=== PATIENT | male | born 1980 | race Caucasian/White ===

== ENCOUNTER 2016-08-07 17:05 | Emergency (ER) | payer SELFPAY ==
--- NOTE | 2016-08-07 17:27 | ERNOTE ---
Medical Problem HPI - Narrative Date of Service: 08/07/16 - General Chief Complaint: Fever Time Seen by Provider: 08/07/16 17:16 Source: patient, family, RN notes reviewed Exam Limitations: no limitations - Immun/Allergies/Home Medications Immunizations: IMMUNIZATION HX Immunizations Up to Date Yes History of Influenza Vaccine No Allergies/Adverse Reactions: Allergies No Known Allergies Allergy (Verified 08/07/16 17:12) Home Medications: HOME MEDICATIONS Alprazolam [Xanax Xr] 0.5 mg PO Q6H PRN 05/04/16 [Last Taken Unknown] Promethazine HCl [Phenergan] 25 mg PO QID PRN #20 tablet 05/09/16 [Last Taken Unknown] Azithromycin [Zithromax] 250 mg PO DAILY #4 tablet 08/07/16 [Last Taken Unknown] - History of Present History Narrative: 36 y/o male to ED by private vehicle for fever, cough, and sore throat that began 3 days ago. He denies any sick contacts. He has been taking Tylenol and ibuprofen for his fever. He also reports diarrhea but no vomiting. Date (Duration): 08/04/16 Review of Systems - Review of Systems Constitutional: Present: fever, chills, fatigue, malaise EYE: Present: no symptoms reported ENT: Present: nose congestion, sore throat. Absent: ear pain Respiratory: Present: shortness of breath, cough, wheezing Cardiology: Absent: chest pain, syncope Gastrointestinal/Abdominal: Present: diarrhea. Absent: nausea, vomiting, abdominal pain Genitourinary: Present: no symptoms reported Musculoskeletal: Present: muscle pain, joint pain Skin: Absent: rash, lesions Neurological: Present: headache, dizziness/light-headedness Endocrine: Present: no symptoms reported Hematologic/Lymphatic: Present: no symptoms reported Psych: Present: no symptoms reported - Patient's Past Medical History Patient History - Medical: Anxiety, Depression Patient History - Cardiac/Respiratory: Asthma Patient History - Cancer: No Hx of Cancer Patient History - Surgical Procedures: No surgical history - Family History Mother Family History - Medical: No pertinent hx Father Family History - Medical: No pertinent hx - Social History Living Situations: home Does anyone smoke in the home?: Yes Smoking Status: Current every day smoker Cigarettes Packs Per Day: 0.5 Alcohol Use: occasionally Drug Use: none - Immunizations Immunizations Up to Date: Yes Hx Pneumococcal Vaccination: No History of Influenza Vaccine: No Physical Exam - Physical Exam General Appearance: Present: wd/wn, alert, mild distress Ears, Nose, Throat: Present: nasal congestion, pharyngeal erythema. Absent: abnormal TM (R), abnormal TM (L) Neck: Present: normal inspection, nontender, supple Respiratory: Present: no respiratory distress, accessory muscle use - mild tachypnea, wheezing - mild Cardiovascular/Chest: Present: no murmur, tachycardia Extremity Exam: Present: normal inspection, no edema Neurological Exam: Present: alert, oriented, normal mood/affect, no motor/ sensory deficits Skin Exam: Present: normal color, diaphoresis ED Progress - Results and Orders Patient's Lab Results:: I have reviewed the patient's lab results. - Vital Signs Patient's Vital Signs:: I have reviewed the patient's vital signs. Vital Signs: Vital Signs 08/07/16 17:08 Temperature 38.5 C H Pulse Rate 113 H Respiratory 12 Rate Blood Pressure 125/86 O2 Sat by Pulse 97 Oximetry - X-Ray X-Ray #1 X-Ray: chest Interpretation: Reviewed by me X-ray Comments: Technique: PA and lateral views of the chest utilizing 3 total images are evaluated without comparison. Findings: Best appreciated on the lateral view is focal airspace consolidation in the right upper lobe which borders the minor and major fissures. No left-sided consolidation. No pleural effusion or pneumothorax. Cardiac silhouette and pulmonary vasculature are normal. The osseous structures are normal. IMPRESSION: RIGHT UPPER LOBE PNEUMONIA. Electronically signed by Nael Kee D.O.. - Progress/Reassessment Chief Complaint: Fever Progress:: Improved Plan - Plan Plan: Duoneb, IV NS bolus, Tylenol, SoluMedrol, KDur and Zithromax given in dept. Able to tolerate oral meds and fluids. Departure - Departure Clinical Impression: Hypokalemia Pneumonia Qualifiers: Pneumonia type: due to unspecified organism Laterality: right Lung location: upper lobe of lung Qualified Code(s): J18.1 - Lobar pneumonia, unspecified organism Disposition: Home self-care Condition: Stable Instructions: Hypokalemia, Community-Acquired Pneumonia, Adult, [id number] Additional Instructions: Drink plenty of fluids Tylenol and/or ibuprofen for pain/fever Rest Follow up as needed Referrals: Ramesh Collier MD [Primary Care Provider] - Prescriptions: Azithromycin [Zithromax] 250 mg PO DAILY #4 tablet
[2016-08-07] MEDS ORDERED: ALBUTEROL SULFATE/IPRATROPIUM 3 ML NEBU IH ONE ×2 (17:33→17:39)
[2016-08-07] MEDS ORDERED: ACETAMINOPHEN 500 MG TABLET PO ONE (17:33)
--- OUTSIDE RECORDS SUMMARY | 2016-08-07 17:44 | XMS REPORT | Continuity of Care Document ---
:1980 Author Organization [facility] ([facility]) Address [address] [place] [address] Phone [phone] Care Team Providers Name Role Phone Provider, No-Primary Care Primary Care Provider Unavailable Source Comments This disclosure is being made pursuant to the Care Everywhere program, applicable federal and state laws, and may not contain all informaitonavailable regarding this patient.[facility] ([facility]) Active Allergies and Adverse Reactions No Known Allergies Current Medications Not on file Active Problems Not on file Immunizations Name Dates Previously Given Next Due Tdap 11/10/2011 Social History Tobacco Use Types Packs/Day Years Used Date Never Assessed Plan of Care Health Maintenance Due Date Last Done Comments Hepatitis B Vaccine (1 of 3 - Primary Series) 1980 Lipid Disorder Screening 01/12/2000 MMR Vaccine 01/12/2000 Varicella Vaccine (1 of 2 - Adult - No Evidence of 01/12/2000 Immunity) Influenza Vaccine: Seasonal (#1) 01/04/2016 Td Vaccine 11/09/2021 11/10/2011 Tdap Vaccine Completed 11/10/2011 Results from Last 3 Months Not on file
--- OUTSIDE RECORDS SUMMARY | 2016-08-07 17:45 | XMS REPORT | Summary of Care ---
:[address] [facility] Address [address] [place] [address]- Care Team Providers Name Role Phone Sade Cam Primary Care Physician Encounter Date(s): 10/30/15 - 10/30/[address] [id number] Final: Radiculopathy, cervical region Final: Radiculopathy, lumbar region Discharge Disposition: 01 Discharged to Home or Self Care Attending Physician: SABINE Gordon Admitting Physician: SABINE Gordon Vital Signs No data available for this section Problem List Condition Effective Dates Status Health Status Informant Asthma(Confirmed) Active Allergies, Adverse Reactions, Alerts No Known Allergies Medications albuterol 90 mcg/inh inhalation powder 2 puff(s), Inhale, QID, PRN shortness of breath or wheezing, # 1 inh, 1 Refill(s ), Start Date: 12/15/14 10:35:00 CDT, [facility] [place] Start Date: 12/15/14 Stop Date: 06/04/15 Status: Completedalbuterol 90 mcg/inh inhalation powder puff(s), Inhale, q4hr interval, 0 Refill(s), Start Date: 12/15/14 10:35:00 CDT Start Date: 12/15/14 Stop Date: 12/15/14 Status: Discontinuedalbuterol 90 mcg/inh inhalation powder 2 puff(s), Inhale, QID, PRN shortness of breath or wheezing, # 1 EA, 1 Refill(s) , Start Date: 06/04/15 9:19:36 [employer], [place] Start Date: 06/04/15 Stop Date: 06/17/15 Status: Discontinuedalbuterol 90 mcg/inh inhalation powder 2 puff(s), Inhale, QID, PRN shortness of breath or wheezing, # 1 EA, 6 Refill(s) , Start Date: 06/17/15 9:03:00 [employer], Pharmacy: [facility] [place] [place] Start Date: 06/17/15 Stop Date: 01/13/16 Status: Orderedalbuterol CFC free 90 mcg/inh inhalation aerosol 2 puff(s), Inhale, QID, PRN for wheezing, # 18 gm, 0 Refill(s), Start Date: 03/19 10:55:00 CDT, Pharmacy: [facility] [place] [place] Start Date: 08/12/14 Stop Date: 08/19/14 Status: CompletedAzithromycin 5 Day Dose Pack 250 mg oral tablet 1 packet(s), Oral, Per Package Label, as directed on package labeling, X 5 days , # 6 tab(s), 0 Refill(s), Start Date: 08/12/14 10:54:00 CDT, Pharmacy: [facility] [place], [place] Special Instructions: as directed on package labeling Start Date: 08/12/14 Stop Date: 08/17/14 Status: CompletedFlexeril 5 mg oral tablet 1 tab(s), Oral, TID, # 60 tab(s), 6 Refill(s), Start Date: 11/18/15 9:00:27 CDT , Pharmacy: [facility] [place] [place] Start Date: 11/18/15 Status: OrderedFlexeril 5 mg oral tablet 1 tab(s), Oral, TID, # 60 tab(s), 6 Refill(s), Start Date: 11/18/15 8:58:24 CDT , Pharmacy: [facility] Start Date: 11/18/15 Stop Date: 11/18/15 Status: CompletedFlexeril 5 mg oral tablet 1 tab(s), Oral, TID, # 60 tab(s), 0 Refill(s), Start Date: 08/10/15 15:34:00 [employer] Start Date: 08/10/15 Stop Date: 11/18/15 Status: Discontinuedgabapentin 300 mg oral capsule 1 cap(s), Oral, TID, # 90 cap(s), 0 Refill(s), Start Date: 11/26/15 9:23:00 CDT Start Date: 11/26/15 Stop Date: 11/26/15 Status: Completedgabapentin 300 mg oral capsule 1 cap(s), Oral, TID, # 90 cap(s), 0 Refill(s), Start Date: 11/26/15 9:27:06 CDT , [place] [facility] [place] Start Date: 11/26/15 Status: OrderedHYDROcodone-acetaminophen 5 mg-325 mg oral tablet 1-2 tab(s), Oral, TID, PRN for pain, X 30 days, # 180 tab(s), 0 Refill(s), Start Date: 08/27/15 17:06:52 CDT Start Date: 08/27/15 Stop Date: 10/15/15 Status: CompletedHYDROcodone-acetaminophen 5 mg-325 mg oral tablet 1-2 tab(s), Oral, TID, PRN for pain, # 30 tab(s), 0 Refill(s), Start Date: 11/15 15:59:54 CDT Start Date: 11/16/15 Stop Date: 11/18/15 Status: DiscontinuedHYDROcodone-acetaminophen 5 mg-325 mg oral tablet 1-2 tab(s), Oral, TID, PRN for pain, # 180 tab(s), 0 Refill(s), Start Date: 8:58:27 CDT Start Date: 11/18/15 Stop Date: 11/28/15 Status: OrderedHYDROcodone-acetaminophen 5 mg-325 mg oral tablet 1 tab(s), Oral, q6hr, PRN for pain, # 60 tab(s), 0 Refill(s), Start Date: 15:33:00 [employer] Start Date: 08/10/15 Stop Date: 08/27/15 Status: CompletedHYDROcodone-acetaminophen 5 mg-325 mg oral tablet 1-2 tab(s), Oral, TID, PRN for pain, # 180 tab(s), 0 Refill(s), Start Date: 9:57:57 CDT Start Date: 11/16/15 Stop Date: 11/16/15 Status: DiscontinuedHYDROcodone-acetaminophen 5 mg-325 mg oral tablet 1-2 tab(s), Oral, TID, PRN for pain, X 30 days, # 180 tab(s), 0 Refill(s), Start Date: 10/15/15 16:16:11 CDT Start Date: 10/15/15 Stop Date: 11/16/15 Status: Completedlidocaine 5% topical film 1 patch(es), Topical, Daily, # 30 patch(es), 11 Refill(s), Start Date: 11/18/15 9:00:47 CDT, Pharmacy: [facility] [place] [place] Start Date: 11/18/15 Status: Orderedlidocaine 5% topical film 1 patch(es), Topical, Daily, # 30 patch(es), 11 Refill(s), Start Date: 11/18/15 8:58:00 CDT, Pharmacy: [facility] Start Date: 11/18/15 Stop Date: 11/18/15 Status: Completedmeloxicam 15 mg oral tablet 1 tab(s), Oral, Daily, PRN back pain, # 30 tab(s), 11 Refill(s), Start Date: 9:00:41 CDT, Pharmacy: [facility] [place] [place] Start Date: 11/18/15 Stop Date: 11/12/16 Status: Orderedmeloxicam 15 mg oral tablet 1 tab(s), Oral, Daily, PRN back pain, # 30 tab(s), 6 Refill(s), Start Date: 06/20 15:22:26 CDT, Pharmacy: [facility] [place] [place] Start Date: 09/04/15 Stop Date: 11/18/15 Status: Discontinuedmeloxicam 15 mg oral tablet 1 tab(s), Oral, Daily, X 14 days, # 14 tab(s), 0 Refill(s), Start Date: 15:21:57 CDT, Pharmacy: [place], [place] Start Date: 09/04/15 Stop Date: 09/04/15 Status: Completedmeloxicam 15 mg oral tablet 1 tab(s), Oral, Daily, PRN back pain, X 30 days, # 30 tab(s), 11 Refill(s), Start Date: 11/18/15 8:58:29 CDT, Pharmacy: [facility] Start Date: 11/18/15 Stop Date: 11/18/15 Status: Completedmeloxicam 15 mg oral tablet 1 tab(s), Oral, Daily, # 14 tab(s), 0 Refill(s), Start Date: 08/12/15 11:18:00 [employer], Pharmacy: [facility] Start Date: 08/12/15 Stop Date: 09/04/15 Status: Discontinuedpantoprazole 20 mg oral delayed release tablet 1 tab(s), Oral, Daily, # 30 tab(s), 0 Refill(s), Start Date: 06/17/15 9:10:00 [employer], Pharmacy: [facility] Start Date: 06/17/15 Status: OrderedpredniSONE 10 mg oral tablet See Instructions, 4 tabs daily x 2 days; 3 tabs dly x 2 days, 2 tabs dly x 2 days; 1 tab dly x2 days; one-half tab daily x 2 days then stop, # 20 tab(s), 0 Refill(s), Start Date: 08/12/14 10:55:00 CDT, Pharmacy: [place], [place] Special Instructions: 4 tabs daily x 2 days; 3 tabs dly x 2 days, 2 tabs dly x 2 days; 1 tab dly x2 days; one-half tab daily x 2 days then stop Start Date: 08/12/14 Stop Date: 08/21/14 Status: CompletedpredniSONE 10 mg oral tablet 1 tab(s), Oral, Daily, take 4 tablets today; then 2 tablets daily for 7 days, # 20 tab(s), 0 Refill(s), Start Date: 08/12/15 11:16:00 [employer], Pharmacy: [facility] Special Instructions: take 4 tablets today; then 2 tablets daily for 7 days Start Date: 08/12/15 Stop Date: 09/04/15 Status: CompletedPROzac 20 mg oral capsule 1 cap(s), Oral, Daily, # 30 cap(s), 0 Refill(s), Start Date: 08/12/14 10:37:00 CDT Start Date: 08/12/14 Stop Date: 08/26/14 Status: DiscontinuedPROzac 20 mg oral capsule 1 cap(s), Oral, Daily, # 30 cap(s), 1 Refill(s), Start Date: 08/26/14 9:26:00 CDT, Pharmacy: [facility] [place] [place] Start Date: 08/26/14 Stop Date: 12/15/14 Status: CompletedPROzac 20 mg oral capsule 1 cap(s), Oral, Daily, # 30 cap(s), 2 Refill(s), Start Date: 03/16/15 14:18:51 CDT, Pharmacy: [facility] [place] [place] Start Date: 03/16/15 Stop Date: 06/04/15 Status: CompletedPROzac 20 mg oral capsule 1 cap(s), Oral, Daily, # 30 cap(s), 1 Refill(s), Start Date: 12/15/14 10:37:48 CDT, Pharmacy: [facility] [place] [place] Start Date: 12/15/14 Stop Date: 03/16/15 Status: CompletedPROzac 20 mg oral capsule 1 cap(s), Oral, Daily, # 30 cap(s), 2 Refill(s), Start Date: 06/04/15 9:25:45 [employer], Pharmacy: [facility] [place] [place] Start Date: 06/04/15 Stop Date: 06/17/15 Status: DiscontinuedSingulair 10 mg oral tablet 1 tab(s), Oral, qPM, # 90 tab(s), 1 Refill(s), Start Date: 06/17/15 9:03:00 [employer] , Pharmacy: [facility] [place] [place] Start Date: 06/17/15 Status: OrderedSingulair 10 mg oral tablet 1 tab(s), Oral, qPM, # 30 tab(s), 0 Refill(s), Start Date: 04/16/15 8:52:00 [employer] Start Date: 04/16/15 Stop Date: 06/17/15 Status: Discontinuedvenlafaxine 150 mg oral tablet, extended release 1 tab(s), Oral, Daily, NOTE NEW DOSE, X 30 days, # 30 tab(s), 0 Refill(s), Start Date: 09/30/15 17:27:00 CDT, Pharmacy: [place], [place] Special Instructions: NOTE NEW DOSE Start Date: 09/30/15 Stop Date: 10/27/15 Status: Completedvenlafaxine 150 mg oral tablet, extended release 1 tab(s), Oral, Daily, X 30 days, # 30 tab(s), 1 Refill(s), Start Date: 16:55:24 CDT, Pharmacy: [place] Start Date: 10/27/15 Stop Date: 11/05/15 Status: Completedvenlafaxine 150 mg oral tablet, extended release 1 tab(s), Oral, Daily, # 30 tab(s), 0 Refill(s), Start Date: 11/05/15 11:46:16 CDT, Pharmacy: [facility] Start Date: 11/05/15 Status: Orderedvenlafaxine 75 mg oral tablet, extended release 1 tab(s), Oral, Daily, # 30 tab(s), 6 Refill(s), Start Date: 06/17/15 9:06:00 [employer], Pharmacy: [place] Start Date: 06/17/15 Stop Date: 09/30/15 Status: DiscontinuedXanax 0.5 mg oral tablet 1 tab(s), Oral, TID, PRN for anxiety, # 30 tab(s), 0 Refill(s), Start Date: 05/20 16:15:46 CDT Start Date: 10/15/15 Status: OrderedXanax 0.5 mg oral tablet 1 tab(s), Oral, TID, PRN for anxiety, # 30 tab(s), 0 Refill(s), Start Date: 05/19 9:14:00 [employer] Start Date: 04/16/15 Stop Date: 06/04/15 Status: CompletedXanax 0.5 mg oral tablet 1 tab(s), Oral, TID, PRN for anxiety, # 30 tab(s), 0 Refill(s), Start Date: 11:55:03 [employer], called to pharmacy (Rx) Start Date: 07/20/15 Stop Date: 10/15/15 Status: CompletedXanax 0.5 mg oral tablet 1 tab(s), Oral, TID, PRN for anxiety, # 30 tab(s), 0 Refill(s), Start Date: 9:31:17 [employer], called to pharmacy (Rx) Start Date: 06/04/15 Stop Date: 07/20/15 Status: Completed Results No data available for this section Immunizations No data available for this section Procedures No data available for this section Social History No data available for this section Assessment and Plan No data available for this section
--- OUTSIDE RECORDS SUMMARY | 2016-08-07 17:45 | XMS REPORT | Summary of Care ---
:1980 Author Organization [facility] Address [address] [place] [address]- Care Team Providers Name Role Phone Sade Cam Primary Care Physician Encounter Date(s): 10/30/15 - 10/30/[address] [id number] Final: Radiculopathy, cervical region Final: Radiculopathy, [...] ), Start Date: 12/15/14 10:35:00 CDT, [facility] [place] Start Date: 12/15/14 Stop Date: 06/04/15 Status: Completedalbuterol 90 mcg/inh inhalation powder puff(s), Inhale, q4hr interval, 0 Refill(s), Start Date: 12/15/14 10:35:00 CDT Start Date: 12/15/14 Stop Date: 12/15/14 Status: Discontinuedalbuterol 90 mcg/inh inhalation powder 2 puff(s), Inhale, QID, PRN shortness of breath or wheezing, # 1 EA, 1 Refill(s) , Start Date: 06/04/15 9:19:36 [employer], [place] [place] Start Date: 06/04/15 Stop Date: 06/17/15 Status: Discontinuedalbuterol 90 mcg/inh inhalation powder 2 puff(s), Inhale, QID, PRN shortness of breath or wheezing, # 1 EA, 6 Refill(s) , Start Date: 06/17/15 9:03:00 [employer], [facility]acy: [facility] [place] [place] Start Date: 06/17/15 Stop Date: 01/13/16 Status: Orderedalbuterol CFC free 90 mcg/inh inhalation aerosol 2 puff(s), Inhale, QID, PRN for wheezing, # 18 gm, 0 Refill(s), Start Date: 03/19 10:55:00 CDT, Pharmacy: [facility] [place] [place] Start Date: 08/12/14 Stop Date: 08/19/14 Status: CompletedAzithromycin 5 Day Dose Pack 250 mg oral tablet 1 packet(s), Oral, Per Package Label, as directed on package labeling, X 5 days , # 6 tab(s), 0 Refill(s), Start Date: 08/12/14 10:54:00 CDT, Pharmacy: [facility] [place], [place] Special Instructions: as directed on package labeling Start Date: 08/12/14 Stop Date: 08/17/14 Status: CompletedFlexeril 5 mg oral tablet 1 tab(s), Oral, TID, # 60 tab(s), 6 Refill(s), Start Date: 11/18/15 9:00:27 CDT , Pharmacy: [facility] [place] [place] Start Date: 11/18/15 Status: OrderedFlexeril 5 mg oral tablet 1 tab(s), Oral, TID, # 60 tab(s), 6 Refill(s), Start Date: 11/18/15 8:58:24 CDT , Pharmacy: [id number] Start Date: 11/18/15 Stop Date: 11/18/15 Status: CompletedFlexeril 5 mg oral tablet 1 tab(s), Oral, TID, # 60 tab(s), 0 Refill(s), Start Date: 08/10/15 15:34:00 [employer] Start Date: 08/10/15 Stop Date: 11/18/15 Status: Discontinuedgabapentin 300 mg oral capsule 1 cap(s), Oral, TID, # 90 cap(s), 0 Refill(s), Start Date: 11/26/15 9:23:00 CDT Start Date: 11/26/15 Stop Date: 11/26/15 Status: Completedgabapentin 300 mg oral capsule 1 cap(s), Oral, TID, # 90 cap(s), 0 Refill(s), Start Date: 11/26/15 9:27:06 CDT , [place] [facility] [place] [place] Start Date: 11/26/15 Status: OrderedHYDROcodone-acetaminophen 5 [...] 60 tab(s), 0 Refill(s), Start Date: 15:33:00 [employer] Start Date: 08/10/15 Stop Date: 08/27/15 Status: [...] Date: 11/18/15 9:00:47 CDT, Pharmacy: [facility] [place] [place] Start Date: 11/18/15 Status: Orderedlidocaine 5% topical film 1 patch(es), Topical, Daily, # 30 patch(es), 11 Refill(s), Start Date: 11/18/15 8:58:00 CDT, Pharmacy: [id number] Start Date: 11/18/15 Stop Date: 11/18/15 Status: Completedmeloxicam 15 mg oral tablet 1 tab(s), Oral, Daily, PRN back pain, # 30 tab(s), 11 Refill(s), Start Date: 9:00:41 CDT, Pharmacy: [facility] [place] [place] Start Date: 11/18/15 Stop Date: 11/12/16 Status: Orderedmeloxicam 15 mg oral tablet 1 tab(s), Oral, Daily, PRN back pain, # 30 tab(s), 6 Refill(s), Start Date: 06/20 15:22:26 CDT, Pharmacy: [facility] [place] [place] Start Date: 09/04/15 Stop Date: 11/18/15 Status: Discontinuedmeloxicam 15 mg oral tablet 1 tab(s), Oral, Daily, X 14 days, # 14 tab(s), 0 Refill(s), Start Date: 15:21:57 CDT, Pharmacy: [place], [place] Start Date: 09/04/15 Stop Date: 09/04/15 Status: Completedmeloxicam 15 mg oral tablet 1 tab(s), Oral, Daily, PRN back pain, X 30 days, # 30 tab(s), 11 Refill(s), Start Date: 11/18/15 8:58:29 CDT, Pharmacy: [id number] Start Date: 11/18/15 Stop Date: 11/18/15 Status: Completedmeloxicam 15 mg oral tablet 1 tab(s), Oral, Daily, # 14 tab(s), 0 Refill(s), Start Date: 08/12/15 11:18:00 [employer], Pharmacy: [facility] Start Date: 08/12/15 Stop Date: 09/04/15 Status: Discontinuedpantoprazole 20 mg oral delayed release tablet 1 tab(s), Oral, Daily, # 30 tab(s), 0 Refill(s), Start Date: 06/17/15 9:10:00 [employer], Pharmacy: [facility] Start Date: 06/17/15 Status: OrderedpredniSONE 10 mg oral tablet See Instructions, 4 tabs daily x 2 days; 3 tabs dly x 2 days, 2 tabs dly x 2 days; 1 tab dly x2 days; one-half tab daily x 2 days then stop, # 20 tab(s), 0 Refill(s), Start Date: 08/12/14 10:55:00 CDT, Pharmacy: [place], [place] Special Instructions: 4 tabs daily x [...] tab(s), 0 Refill(s), Start Date: 08/12/15 11:16:00 [employer], Pharmacy: [facility] Special Instructions: take 4 tablets today; then [...] Date: 08/26/14 9:26:00 CDT, Pharmacy: [facility] [place] [place] Start Date: 08/26/14 Stop Date: 12/15/14 Status: CompletedPROzac 20 mg oral capsule 1 cap(s), Oral, Daily, # 30 cap(s), 2 Refill(s), Start Date: 03/16/15 14:18:51 CDT, Pharmacy: [facility] [place] [place] Start Date: 03/16/15 Stop Date: 06/04/15 Status: CompletedPROzac 20 mg oral capsule 1 cap(s), Oral, Daily, # 30 cap(s), 1 Refill(s), Start Date: 12/15/14 10:37:48 CDT, Pharmacy: [facility] [place] [place] Start Date: 12/15/14 Stop Date: 03/16/15 Status: CompletedPROzac 20 mg oral capsule 1 cap(s), Oral, Daily, # 30 cap(s), 2 Refill(s), Start Date: 06/04/15 9:25:45 [employer], [facility]acy: [facility] [place] [place] Start Date: 06/04/15 Stop Date: 06/17/15 Status: DiscontinuedSingulair 10 mg oral tablet 1 tab(s), Oral, qPM, # 90 tab(s), 1 Refill(s), Start Date: 06/17/15 9:03:00 [employer] , [facility]acy: [facility] [place] [place] Start Date: 06/17/15 Status: OrderedSingulair 10 mg oral tablet 1 tab(s), Oral, qPM, # 30 tab(s), 0 Refill(s), Start Date: 04/16/15 8:52:00 [employer] Start Date: 04/16/15 Stop Date: 06/17/15 Status: Discontinuedvenlafaxine 150 mg oral tablet, extended release 1 tab(s), Oral, Daily, NOTE NEW DOSE, X 30 days, # 30 tab(s), 0 Refill(s), Start Date: 09/30/15 17:27:00 CDT, Pharmacy: [place], [place] Special Instructions: NOTE NEW DOSE Start Date: 09/30/15 Stop Date: 10/27/15 Status: Completedvenlafaxine 150 mg oral tablet, extended release 1 tab(s), Oral, Daily, X 30 days, # 30 tab(s), 1 Refill(s), Start Date: 16:55:24 CDT, Pharmacy: [place], [place] Start Date: 10/27/15 Stop Date: 11/05/15 Status: Completedvenlafaxine 150 mg oral tablet, extended release 1 tab(s), Oral, Daily, # 30 tab(s), 0 Refill(s), Start Date: 11/05/15 11:46:16 CDT, Pharmacy: [facility] Start Date: 11/05/15 Status: Orderedvenlafaxine 75 mg oral tablet, extended release 1 tab(s), Oral, Daily, # 30 tab(s), 6 Refill(s), Start Date: 06/17/15 9:06:00 [employer], Pharmacy: [place] Start Date: 06/17/15 Stop Date: 09/30/15 Status: DiscontinuedXanax 0.5 mg oral tablet 1 tab(s), Oral, TID, PRN for anxiety, # 30 tab(s), 0 Refill(s), Start Date: 05/20 16:15:46 CDT Start Date: 10/15/15 Status: OrderedXanax 0.5 mg oral tablet 1 tab(s), Oral, TID, PRN for anxiety, # 30 tab(s), 0 Refill(s), Start Date: 05/19 9:14:00 [employer] Start Date: 04/16/15 Stop Date: 06/04/15 Status: CompletedXanax 0.5 mg oral tablet 1 tab(s), Oral, TID, PRN for anxiety, # 30 tab(s), 0 Refill(s), Start Date: 11:55:03 [employer], called to pharmacy (Rx) Start Date: 07/20/15 Stop Date: 10/15/15 Status: CompletedXanax 0.5 mg oral tablet 1 tab(s), Oral, TID, PRN for anxiety, # 30 tab(s), 0 Refill(s), Start Date: 9:31:17 [employer], called to pharmacy (Rx) Start Date: 06/04/15 Stop Date: 07/20/15 Status: Completed Results No data available for this section Immunizations No data available for this section Procedures No data available for this section Social History No data available for this section Assessment and Plan No data available for this section
[2016-08-07 18:13] LABS: Hematocrit 42.3 % (42.0-52.0); Hemoglobin 15.4 gm/dL (13.5-18.0); Mean Cell Volume 85.8 fl (78-100); Mean Corpuscular Hemoglobin 31.2 pg (27-31); Mean Corpuscular Hgb Conc 36.4 g/dl (32-36); Neutrophil # 6.5 K/mm3 (1.3-6.0); Platelet Count 169 K/mm3 (150-450); Red Blood Count 4.93 M/mm3 (4.7-6.0); Red Cell Distribution Width 12.6 % (11.5-14.0); White Blood Count 8.6 K/mm3 (4.0-10.5)
[2016-08-07 18:24] LABS: Albumin * 3.9 gm/dl (3.4-5.0); Anion Gap 17.9 mmol/L (6.8-13.8); BUN/Creatinine Ratio 10.7 (9.0-21.6); Bilirubin, Total 1.1 mg/dL (0.0-1.1); Ca. Corrected For Albumin 8.3 mg/dL (8.4-10.2); Calcium * 8.5 mg/dL (7.9-10.9); Carbon Dioxide 22.7 mmol/L (24-32.6); Potassium 2.6 mmol/L (3.4-4.6)
[2016-08-07] MEDS ORDERED: METHYLPREDNISOLONE SOD SUCC/PF 125 MG/2 ML VIAL IV ONE (18:45)
[2016-08-07] MEDS ORDERED: NORMAL SALINE 1,000 ML IV ONE (18:45)
[2016-08-07] MEDS ORDERED: POTASSIUM CHLORIDE 20 MEQ TABLET.SA PO ONE (18:45)
[2016-08-07] MEDS ORDERED: METHYLPREDNISOLONE SOD SUCC/PF 125 MG/2 ML VIAL ONE (18:55)
[2016-08-07] MEDS ORDERED: POTASSIUM CHLORIDE 20 MEQ TABLET.SA ONE (18:56)
[2016-08-07] MEDS ORDERED: AZITHROMYCIN 250 MG TABLET PO ONE (20:15)
[2016-08-07] MEDS ORDERED: AZITHROMYCIN 250 MG TABLET ONE (20:23)
[2016-08-07 20:27] VITALS: BP 118/72
== END 2016-08-07 20:25 | disposition home or self-care (01) ==
LOC: ER 17:05
DX: E87.6 Hypokalemia (principal); J18.1 Lobar pneumonia, unspecified organism; Z72.0 Tobacco use; F41.8 Other specified anxiety disorders